=== PATIENT | male | born 1955 | race Caucasian/White ===

== ENCOUNTER 2023-10-22 10:33 | Inpatient (IN) | payer OTHER ==
[~2023-10-22] VITALS: Ht 182.9 cm; Wt 102.6 kg
[2023-10-22] VITALS (9 sets, daily range): BP systolic 87–95; BP diastolic 53–58; PULSE 79–90; RESP 14–18; TEMP 97.8–98.7; O2SAT 97–100
[2023-10-22 11:57] LABS: Basophils # (auto) 0 10 ^3/uL (0-0.2); Basophils % (auto) 0.4 % (0.0-2.0); Eosinophils # (auto) 0 10 ^3/uL (0-0.8); Eosinophils % (auto) 0.2 % (0.0-7.0); Hematocrit 17.1 % (41.0-53.0); Lymphocytes # (auto) 0.7 10 ^3/uL (0.4-5.4); Neutrophils # (auto) 4.5 10 ^3/uL (1.6-8.6)
[2023-10-22 11:58] LABS: Lymphocytes % (auto) 12.2 % (10.0-50.0); Mean Corpuscular Hemoglobin 20.5 pg (28.0-32.0); Mean Corpuscular Volume 73.1 fL (80.0-100.0); Monocytes # (auto) 0.5 10 ^3/uL (0-1.3); Monocytes % (auto) 7.9 % (0.0-12.0); Neutrophils % (auto) 79.3 % (37.0-80.0); Nucleated Red Blood Cells % 1.4 %; Red Blood Cells 2.34 10^6/uL (4.5-5.90); Red Cell Distribution Width 19.4 % (11.8-14.3); White Blood Cell 5.7 10^3/uL (4.4-10.8)
[2023-10-22 12:01] LABS: Hemoglobin 4.8 g/dL (13.5-17.5)
[2023-10-22 12:08] LABS: Alanine Aminotransferase 28 U/L (7-40); Albumin 3.2 g/dL (3.2-4.8); Alkaline Phosphatase 105 U/L (46-116); Anion Gap 13 (5-15); Aspartate Aminotransferase 12 U/L (13-40); BUN/Creatinine Ratio 17.1 (10.0-20.0); Bilirubin, Total 1.4 mg/dL (0.2-1.0); Calcium 8.6 mg/dL (8.5-10.1); Carbon Dioxide 20 mmol/L (20-30); Chloride 99 mmol/L (98-107); Glucose 93 mg/dL (74-106); Sodium 132 mmol/L (136-145)
[2023-10-22 12:09] LABS: Total Protein 5.7 g/dL (5.7-8.2)
[2023-10-22 12:10] LABS: INR 1.36 (0.9-1.15); Prothrombin Time 14.1 sec (9.3-11.8)
[2023-10-22 12:11] LABS: Hypochromia Moderate; Platelet Estimate Adequate
[2023-10-22 12:13] LABS: Blood Urea Nitrogen 84 mg/dL (9-23)
[2023-10-22] MEDS ORDERED: cefTRIAXone 1GM/50ML D5W 50 ML IV ONE (12:45)
[2023-10-22] MEDS ORDERED: MORPHINE SULFATE INJ 2 MG/ml SYRG IV PRN (16:45)
[2023-10-22] MEDS ORDERED: NITROGLYCERIN 0.4 MG SL TAB SL PRN (16:45)
[2023-10-22] MEDS: SODIUM CHLORIDE 0.9% 1,000 ML IV ONE ×2 (16:49→17:23)
[2023-10-22] MEDS: VANCOMYCIN 1GM/200ML 200 ML IV ONE (17:23)
[2023-10-22] MEDS: SODIUM CHLORIDE 0.9% 1,000 ML IV SCH (18:32)
[2023-10-22] MEDS: PIPERACILLIN-TAZOB 3.375GM 100 ML IV SCH (18:44)
[2023-10-23] VITALS (16 sets, daily range): BP systolic 82–109; BP diastolic 55–74; PULSE 72–84; RESP 17–20; TEMP 97.6–98.8; O2SAT 92–94
[2023-10-23] MEDS ORDERED: TAMS0.4C36 PO (01:55)
[2023-10-23] MEDS ORDERED: FER325T PO (01:56)
[2023-10-23 09:08] LABS: Basophils # (auto) 0 10 ^3/uL (0-0.2); Eosinophils # (auto) 0 10 ^3/uL (0-0.8); Eosinophils % (auto) 0.1 % (0.0-7.0); Hemoglobin 7.6 g/dL (13.5-17.5); Lymphocytes # (auto) 0.7 10 ^3/uL (0.4-5.4); Mean Corpuscular Hemoglobin 23.6 pg (28.0-32.0); Mean Corpuscular Hgb Conc. 30.6 g/dL (32.0-36.0); Neutrophils # (auto) 5.2 10 ^3/uL (1.6-8.6); Nucleated Red Blood Cells % 2.7 %
[2023-10-23 09:10] LABS: Basophils % (auto) 0.4 % (0.0-2.0); Hematocrit 24.8 % (41.0-53.0); Lymphocytes % (auto) 11.3 % (10.0-50.0); Mean Corpuscular Volume 77.2 fL (80.0-100.0); Monocytes # (auto) 0.5 10 ^3/uL (0-1.3); Neutrophils % (auto) 80.2 % (37.0-80.0); Red Blood Cells 3.21 10^6/uL (4.5-5.90); Red Cell Distribution Width 19.4 % (11.8-14.3); White Blood Cell 6.4 10^3/uL (4.4-10.8)
[2023-10-23 09:14] LABS: Chloride 102 mmol/L (98-107); Potassium 5.1 mmol/L (3.5-5.1); Sodium 133 mmol/L (136-145)
[2023-10-23 09:15] LABS: Anion Gap 12 (5-15); Calcium 8.6 mg/dL (8.5-10.1); Carbon Dioxide 19 mmol/L (20-30)
[2023-10-23 09:20] LABS: BUN/Creatinine Ratio 16.3 (10.0-20.0); Glucose 108 mg/dL (74-106)
[2023-10-23 09:24] LABS: Blood Urea Nitrogen 82 mg/dL (9-23)
[2023-10-23] MEDS: HYDROcodone-ACET 10/325MG TAB PO PRN (09:42)
[2023-10-23] MEDS: LIDOCAINE 2% JELLY 11ml (GLYDO) UR ONE (12:15)
[2023-10-23] MEDS: LIDOCAINE 2% TOPICAL JELLY 5 ML URJT TOP ONE (13:24)
[2023-10-23 21:00] LABS: Hemoglobin 8.8 g/dL (13.5-17.5)
[2023-10-24] VITALS (8 sets, daily range): BP systolic 95–115; BP diastolic 52–77; PULSE 79–88; RESP 18–20; TEMP 97.5–98; O2SAT 93–99
[2023-10-24 06:20] LABS: Basophils # (auto) 0.1 10 ^3/uL (0-0.2); Lymphocytes # (auto) 0.8 10 ^3/uL (0.4-5.4); Mean Corpuscular Volume 78.8 fL (80.0-100.0); Neutrophils # (auto) 7.3 10 ^3/uL (1.6-8.6); White Blood Cell 9.1 10^3/uL (4.4-10.8)
[2023-10-24 06:23] LABS: Basophils % (auto) 0.8 % (0.0-2.0); Chloride 102 mmol/L (98-107); Eosinophils # (auto) 0 10 ^3/uL (0-0.8); Eosinophils % (auto) 0.3 % (0.0-7.0); Mean Corpuscular Hemoglobin 24.5 pg (28.0-32.0); Mean Corpuscular Hgb Conc. 31.1 g/dL (32.0-36.0); Monocytes # (auto) 0.9 10 ^3/uL (0-1.3); Monocytes % (auto) 9.8 % (0.0-12.0); Neutrophils % (auto) 80.1 % (37.0-80.0); Nucleated Red Blood Cells % 1.6 %; Potassium 5.2 mmol/L (3.5-5.1); Red Blood Cells 3.68 10^6/uL (4.5-5.90); Red Cell Distribution Width 20.9 % (11.8-14.3); Sodium 133 mmol/L (136-145)
[2023-10-24 06:24] LABS: Anion Gap 11 (5-15); Calcium 8.7 mg/dL (8.5-10.1); Carbon Dioxide 20 mmol/L (20-30)
[2023-10-24 06:29] LABS: BUN/Creatinine Ratio 15.5 (10.0-20.0); Blood Urea Nitrogen 79 mg/dL (9-23); Glucose 126 mg/dL (74-106)
[2023-10-24] MEDS: FUROSEMIDE INJECTION 100 MG in SODIUM CHL 0.9% 100 ML IV SCH (10:43)
[2023-10-25] VITALS (8 sets, daily range): BP systolic 84–97; BP diastolic 55–63; PULSE 56–94; RESP 16–19; TEMP 97.6–98.4; O2SAT 91–98
[2023-10-25 06:21] LABS: Anion Gap 11 (5-15); Basophils # (auto) 0.1 10 ^3/uL (0-0.2); Carbon Dioxide 22 mmol/L (20-30); Chloride 100 mmol/L (98-107); Hemoglobin 8.6 g/dL (13.5-17.5); Lymphocytes # (auto) 0.8 10 ^3/uL (0.4-5.4); Mean Corpuscular Hemoglobin 24.2 pg (28.0-32.0); Potassium 4.9 mmol/L (3.5-5.1); Red Blood Cells 3.54 10^6/uL (4.5-5.90); Sodium 133 mmol/L (136-145)
[2023-10-25 06:22] LABS: Calcium 8.1 mg/dL (8.7-10.4)
[2023-10-25 06:23] LABS: Basophils % (auto) 0.7 % (0.0-2.0); Eosinophils # (auto) 0.1 10 ^3/uL (0-0.8); Eosinophils % (auto) 1.7 % (0.0-7.0); Hematocrit 28.1 % (41.0-53.0); Lymphocytes % (auto) 10.1 % (10.0-50.0); Mean Corpuscular Hgb Conc. 30.4 g/dL (32.0-36.0); Mean Corpuscular Volume 79.4 fL (80.0-100.0); Monocytes # (auto) 0.6 10 ^3/uL (0-1.3); Monocytes % (auto) 7.2 % (0.0-12.0); Neutrophils # (auto) 6.6 10 ^3/uL (1.6-8.6); Neutrophils % (auto) 80.3 % (37.0-80.0); Nucleated Red Blood Cells % 0.9 %; White Blood Cell 8.2 10^3/uL (4.4-10.8)
[2023-10-25 06:24] LABS: Red Cell Distribution Width 20.8 % (11.8-14.3)
[2023-10-25 06:27] LABS: BUN/Creatinine Ratio 17.4 (10.0-20.0); Glucose 98 mg/dL (74-106)
[2023-10-25 06:46] LABS: Blood Urea Nitrogen 82 mg/dL (9-23)
[2023-10-25] MEDS: SODIUM CHLORIDE 0.9% 1,000 ML IV SCH (11:45)
[2023-10-25] MEDS: SODIUM CHLORIDE 0.9% 2,000 ML IV ONE (12:00)
[2023-10-25] MEDS ORDERED: ALBU108A5 INH (16:27)
[2023-10-25] MEDS ORDERED: FINA5TAB4 PO (16:27)
[2023-10-26] VITALS (13 sets, daily range): BP systolic 89–140; BP diastolic 54–80; PULSE 74–94; RESP 12–20; TEMP 97.8–98.6; O2SAT 90–100
[2023-10-26 06:30] LABS: Basophils # (auto) 0.1 10 ^3/uL (0-0.2); Lymphocytes # (auto) 0.6 10 ^3/uL (0.4-5.4); Monocytes # (auto) 0.6 10 ^3/uL (0-1.3); Monocytes % (auto) 8.9 % (0.0-12.0)
[2023-10-26 06:34] LABS: Basophils % (auto) 0.8 % (0.0-2.0); Eosinophils # (auto) 0.1 10 ^3/uL (0-0.8); Eosinophils % (auto) 1.3 % (0.0-7.0); Hematocrit 25.3 % (41.0-53.0); Hemoglobin 7.9 g/dL (13.5-17.5); Lymphocytes % (auto) 9.2 % (10.0-50.0); Mean Corpuscular Hemoglobin 24.4 pg (28.0-32.0); Mean Corpuscular Volume 78.8 fL (80.0-100.0); Neutrophils # (auto) 5.2 10 ^3/uL (1.6-8.6); Neutrophils % (auto) 79.8 % (37.0-80.0); Nucleated Red Blood Cells % 0.5 %; Red Blood Cells 3.21 10^6/uL (4.5-5.90); Red Cell Distribution Width 21.2 % (11.8-14.3); White Blood Cell 6.5 10^3/uL (4.4-10.8)
[2023-10-26 06:41] LABS: Chloride 101 mmol/L (98-107); Potassium 3.2 mmol/L (3.5-5.1); Sodium 135 mmol/L (136-145)
[2023-10-26 06:42] LABS: Anion Gap 12 (5-15); Carbon Dioxide 22 mmol/L (20-30)
[2023-10-26 06:43] LABS: Calcium 7.6 mg/dL (8.7-10.4)
[2023-10-26 06:47] LABS: BUN/Creatinine Ratio 20.7 (10.0-20.0); Glucose 97 mg/dL (74-106)
[2023-10-26 07:28] LABS: Blood Urea Nitrogen 83 mg/dL (9-23)
[2023-10-26] MEDS: fentaNYL CITRATE 100 MCG/2 ML VL ONE (08:34)
[2023-10-26] MEDS: MIDAZOLAM HCL 2MG/2ML 2ml VIAL (1mg/ml) ONE (08:35)
[2023-10-26] MEDS: IODIXANOL 320MG/ML 100ML BTL IV ONE (08:35)
[2023-10-26] MEDS: LIDOCAINE 2%HCL (LOCAL ANESTH.) INJ 20ML MDV ONE (08:35)
[2023-10-26] MEDS: FUROSEMIDE 100 MG/10ML VIAL IV SCH (10:00)
[2023-10-26 19:41] LABS: Hematocrit 26.5 % (41.0-53.0); Hemoglobin 8.2 g/dL (13.5-17.5)
[2023-10-27] VITALS (8 sets, daily range): BP systolic 91–113; BP diastolic 61–66; PULSE 64–114; RESP 16–18; TEMP 98–98.6; O2SAT 95–99
[2023-10-27 06:59] LABS: Basophils # (auto) 0.1 10 ^3/uL (0-0.2); Eosinophils # (auto) 0.1 10 ^3/uL (0-0.8); Lymphocytes # (auto) 0.7 10 ^3/uL (0.4-5.4); Monocytes # (auto) 0.5 10 ^3/uL (0-1.3); Neutrophils % (auto) 76.4 % (37.0-80.0)
[2023-10-27 07:01] LABS: Basophils % (auto) 0.9 % (0.0-2.0); Chloride 104 mmol/L (98-107); Eosinophils % (auto) 1.3 % (0.0-7.0); Hematocrit 25.8 % (41.0-53.0); Hemoglobin 7.9 g/dL (13.5-17.5); Mean Corpuscular Hemoglobin 23.9 pg (28.0-32.0); Mean Corpuscular Hgb Conc. 30.7 g/dL (32.0-36.0); Mean Corpuscular Volume 78.1 fL (80.0-100.0); Monocytes % (auto) 9.4 % (0.0-12.0); Neutrophils # (auto) 4.4 10 ^3/uL (1.6-8.6); Nucleated Red Blood Cells % 0.3 %; Potassium 2.9 mmol/L (3.5-5.1); Red Blood Cells 3.31 10^6/uL (4.5-5.90); Sodium 139 mmol/L (136-145); White Blood Cell 5.8 10^3/uL (4.4-10.8)
[2023-10-27 07:02] LABS: Carbon Dioxide 25 mmol/L (20-30)
[2023-10-27 07:03] LABS: Calcium 7.9 mg/dL (8.5-10.1)
[2023-10-27 07:06] LABS: Red Cell Distribution Width 22.2 % (11.8-14.3)
[2023-10-27 07:07] LABS: Glucose 138 mg/dL (74-106)
[2023-10-27 07:08] LABS: BUN/Creatinine Ratio 23.2 (10.0-20.0); Blood Urea Nitrogen 76 mg/dL (9-23)
[2023-10-27 07:09] LABS: Anion Gap 10 (5-15)
[2023-10-27] MEDS: DAKINS QUARTER STR 0.125% (NaHypochlorite) 473 ML TOPICAL SOL TOP SCH (15:12)
[2023-10-27] MEDS: POTASSIUM CHL 20 Meq TABLET PO ONE (15:12)
[2023-10-27] MEDS ORDERED: MORPHINE SULFATE 4 MG/ML SYR/VIAL IV PRN (21:45)
[2023-10-27] MEDS: LACTULOSE 20Gm/30ML SOLN PO ONE (23:31)
[2023-10-28] VITALS (9 sets, daily range): BP systolic 97–104; BP diastolic 59–72; PULSE 85–100; RESP 14–20; TEMP 97.4–99; O2SAT 95–98
[2023-10-28 05:58] LABS: Basophils # (auto) 0.1 10 ^3/uL (0-0.2); Hemoglobin 7.7 g/dL (13.5-17.5); Lymphocytes # (auto) 0.7 10 ^3/uL (0.4-5.4); Monocytes # (auto) 0.6 10 ^3/uL (0-1.3)
[2023-10-28 06:02] LABS: Basophils % (auto) 1.5 % (0.0-2.0); Eosinophils # (auto) 0 10 ^3/uL (0-0.8); Eosinophils % (auto) 0.8 % (0.0-7.0); Hematocrit 24.8 % (41.0-53.0); Lymphocytes % (auto) 13.7 % (10.0-50.0); Mean Corpuscular Hemoglobin 24.4 pg (28.0-32.0); Mean Corpuscular Volume 78.5 fL (80.0-100.0); Monocytes % (auto) 10.4 % (0.0-12.0); Neutrophils # (auto) 3.9 10 ^3/uL (1.6-8.6); Neutrophils % (auto) 73.6 % (37.0-80.0); Nucleated Red Blood Cells % 0.5 %; Red Blood Cells 3.16 10^6/uL (4.5-5.90); White Blood Cell 5.3 10^3/uL (4.4-10.8)
[2023-10-28 06:08] LABS: Anion Gap 7 (5-15); Carbon Dioxide 25 mmol/L (20-30); Chloride 106 mmol/L (98-107); Potassium 3.3 mmol/L (3.5-5.1); Sodium 138 mmol/L (136-145)
[2023-10-28 06:09] LABS: Calcium 7.6 mg/dL (8.5-10.1)
[2023-10-28 06:13] LABS: Glucose 130 mg/dL (74-106)
[2023-10-28 06:16] LABS: Red Cell Distribution Width 22.4 % (11.8-14.3)
[2023-10-28 06:18] LABS: Blood Urea Nitrogen 60 mg/dL (9-23)
[2023-10-28] MEDS: POLYETHYLENE GLYCOL 17 GM PWDR PO PRN (08:39)
[2023-10-28] MEDS: POTASSIUM CHL 10 Meq TABLET PO ONE (08:39)
[2023-10-28] MEDS: FLEET ENEMA(ADULT) 135 ML PR ONE (13:56)
[2023-10-29] VITALS (12 sets, daily range): BP systolic 90–117; BP diastolic 46–71; PULSE 86–99; RESP 18–21; TEMP 97.4–98.8; O2SAT 91–99
[2023-10-29 06:05] LABS: Basophils # (auto) 0.1 10 ^3/uL (0-0.2); Eosinophils # (auto) 0 10 ^3/uL (0-0.8); Eosinophils % (auto) 0.5 % (0.0-7.0); Hemoglobin 7.3 g/dL (13.5-17.5); Lymphocytes # (auto) 0.7 10 ^3/uL (0.4-5.4); Lymphocytes % (auto) 14.7 % (10.0-50.0); Monocytes # (auto) 0.5 10 ^3/uL (0-1.3); Neutrophils # (auto) 3.6 10 ^3/uL (1.6-8.6); Nucleated Red Blood Cells % 0.3 %
[2023-10-29 06:11] LABS: Basophils % (auto) 1.2 % (0.0-2.0); Hematocrit 23.7 % (41.0-53.0); Mean Corpuscular Hemoglobin 24.1 pg (28.0-32.0); Mean Corpuscular Hgb Conc. 30.7 g/dL (32.0-36.0); Mean Corpuscular Volume 78.3 fL (80.0-100.0); Monocytes % (auto) 10.1 % (0.0-12.0); Neutrophils % (auto) 73.5 % (37.0-80.0); Red Blood Cells 3.03 10^6/uL (4.5-5.90); White Blood Cell 4.9 10^3/uL (4.4-10.8)
[2023-10-29 06:16] LABS: Chloride 107 mmol/L (98-107); Potassium 3.2 mmol/L (3.5-5.1); Red Cell Distribution Width 22.4 % (11.8-14.3); Sodium 140 mmol/L (136-145)
[2023-10-29 06:17] LABS: Anion Gap 8 (5-15); Calcium 7.7 mg/dL (8.7-10.4); Carbon Dioxide 25 mmol/L (20-30)
[2023-10-29 06:20] LABS: INR 1.13 (0.9-1.15); Partial Thromboplastin Time 30.2 SEC (24.5-34.5); Prothrombin Time 11.9 sec (9.3-11.8)
[2023-10-29 06:22] LABS: BUN/Creatinine Ratio 24.7 (10.0-20.0); Glucose 92 mg/dL (74-106)
[2023-10-29 06:24] LABS: Phosphorus 3.8 mg/dL (2.4-5.1)
[2023-10-29 06:28] LABS: Blood Urea Nitrogen 44 mg/dL (9-23)
[2023-10-29] MEDS: TAMSULOSIN HYDROCHLORIDE 0.4 MG CAP PO SCH (14:41)
[2023-10-29] MEDS: POTASSIUM CHL 20MEQ/100ML 100 ML IV SCH ×2 (15:06→19:45)
[2023-10-29] MEDS: PIPERACILLIN-TAZOB 3.375GM 100 ML IV SCH (21:30)
[2023-10-30] VITALS (8 sets, daily range): BP systolic 99–108; BP diastolic 57–73; PULSE 86–105; RESP 18–20; TEMP 97.4–98; O2SAT 95–100
[2023-10-30 06:30] LABS: Basophils # (auto) 0.1 10 ^3/uL (0-0.2); Hematocrit 26.8 % (41.0-53.0); Monocytes # (auto) 0.6 10 ^3/uL (0-1.3); Nucleated Red Blood Cells % 0.6 %
[2023-10-30 06:33] LABS: Basophils % (auto) 1.3 % (0.0-2.0); Eosinophils # (auto) 0 10 ^3/uL (0-0.8); Eosinophils % (auto) 0.8 % (0.0-7.0); Hemoglobin 8.2 g/dL (13.5-17.5); Lymphocytes # (auto) 0.8 10 ^3/uL (0.4-5.4); Lymphocytes % (auto) 13.6 % (10.0-50.0); Mean Corpuscular Hemoglobin 24.5 pg (28.0-32.0); Mean Corpuscular Hgb Conc. 30.6 g/dL (32.0-36.0); Mean Corpuscular Volume 80.1 fL (80.0-100.0); Monocytes % (auto) 10.8 % (0.0-12.0); Neutrophils # (auto) 4.4 10 ^3/uL (1.6-8.6); Neutrophils % (auto) 73.5 % (37.0-80.0); Red Blood Cells 3.35 10^6/uL (4.5-5.90); Red Cell Distribution Width 21.8 % (11.8-14.3)
[2023-10-30 06:39] LABS: Chloride 106 mmol/L (98-107); Potassium 3.7 mmol/L (3.5-5.1); Sodium 139 mmol/L (136-145)
[2023-10-30 06:40] LABS: Anion Gap 7 (5-15); Calcium 8.3 mg/dL (8.7-10.4); Carbon Dioxide 26 mmol/L (20-30)
[2023-10-30 06:45] LABS: BUN/Creatinine Ratio 22.6 (10.0-20.0); Blood Urea Nitrogen 35 mg/dL (9-23); Glucose 95 mg/dL (74-106)
[2023-10-31] VITALS (7 sets, daily range): BP systolic 94–122; BP diastolic 63–75; PULSE 71–99; RESP 17–20; TEMP 96.9–98.5; O2SAT 97–98
[2023-10-31 06:15] LABS: Basophils # (auto) 0.1 10 ^3/uL (0-0.2); Eosinophils # (auto) 0.1 10 ^3/uL (0-0.8); Hemoglobin 8.2 g/dL (13.5-17.5); Lymphocytes # (auto) 0.9 10 ^3/uL (0.4-5.4); Monocytes # (auto) 0.4 10 ^3/uL (0-1.3); Neutrophils # (auto) 4.4 10 ^3/uL (1.6-8.6); Nucleated Red Blood Cells % 0.5 %
[2023-10-31 06:18] LABS: Basophils % (auto) 1.6 % (0.0-2.0); Hematocrit 26.5 % (41.0-53.0); Lymphocytes % (auto) 15.3 % (10.0-50.0); Mean Corpuscular Hemoglobin 24.6 pg (28.0-32.0); Mean Corpuscular Volume 79.4 fL (80.0-100.0); Monocytes % (auto) 6.7 % (0.0-12.0); Neutrophils % (auto) 75.4 % (37.0-80.0); Red Blood Cells 3.34 10^6/uL (4.5-5.90); Red Cell Distribution Width 21.9 % (11.8-14.3); White Blood Cell 5.8 10^3/uL (4.4-10.8)
[2023-10-31 06:26] LABS: Chloride 106 mmol/L (98-107); Potassium 3.5 mmol/L (3.5-5.1); Sodium 138 mmol/L (136-145)
[2023-10-31 06:27] LABS: Anion Gap 6 (5-15); Calcium 8.3 mg/dL (8.7-10.4); Carbon Dioxide 26 mmol/L (20-30)
[2023-10-31 06:32] LABS: BUN/Creatinine Ratio 24.1 (10.0-20.0); Blood Urea Nitrogen 35 mg/dL (9-23); Glucose 108 mg/dL (74-106)
[2023-10-31] MEDS: FUROSEMIDE 40 MG/4 ML VIAL IV SCH (17:34)
[2023-10-31] MEDS ORDERED: TAMS-35 PO (21:46)
[2023-10-31] MEDS ORDERED: FER325T PO ×2 (21:49→21:50)
[2023-10-31] MEDS ORDERED: POLY335015 PO (21:52)
[2023-11-01] VITALS (10 sets, daily range): BP systolic 94–118; BP diastolic 59–78; PULSE 72–99; RESP 17–20; TEMP 97.5–98.5; O2SAT 94–100
[2023-11-01 06:06] LABS: Basophils # (auto) 0.1 10 ^3/uL (0-0.2); Basophils % (auto) 2.2 % (0.0-2.0); Eosinophils # (auto) 0.1 10 ^3/uL (0-0.8); Eosinophils % (auto) 0.9 % (0.0-7.0); Hematocrit 26.4 % (41.0-53.0); Hemoglobin 8.1 g/dL (13.5-17.5); Lymphocytes # (auto) 0.9 10 ^3/uL (0.4-5.4); Lymphocytes % (auto) 15.4 % (10.0-50.0); Mean Corpuscular Hgb Conc. 30.8 g/dL (32.0-36.0); Mean Corpuscular Volume 81.3 fL (80.0-100.0); Monocytes # (auto) 0.4 10 ^3/uL (0-1.3); Monocytes % (auto) 6.5 % (0.0-12.0); Neutrophils # (auto) 4.3 10 ^3/uL (1.6-8.6); Nucleated Red Blood Cells % 0.4 %; Red Blood Cells 3.24 10^6/uL (4.5-5.90); White Blood Cell 5.8 10^3/uL (4.4-10.8)
[2023-11-01 06:08] LABS: Red Cell Distribution Width 22.5 % (11.8-14.3)
[2023-11-01 06:12] LABS: Chloride 108 mmol/L (98-107); Potassium 3.5 mmol/L (3.5-5.1); Sodium 137 mmol/L (136-145)
[2023-11-01 06:13] LABS: Anion Gap 5 (5-15); Calcium 8.3 mg/dL (8.7-10.4); Carbon Dioxide 24 mmol/L (20-30)
[2023-11-01 06:18] LABS: BUN/Creatinine Ratio 17.2 (10.0-20.0); Blood Urea Nitrogen 26 mg/dL (9-23); Glucose 109 mg/dL (74-106)
[2023-11-01] MEDS ORDERED: FURO40TA4 PO (12:02)
[2023-11-01] MEDS ORDERED: POTA-36 PO (12:03)
[2023-11-01] MEDS ORDERED: DOCU-111 PO (12:05)
[2023-11-02 01:00] VITALS: BP 100/74; PULSE 92; RESP 17; TEMP 98; O2SAT 97
[2023-11-02 05:00] VITALS: BP 108/75; PULSE 87; RESP 17; TEMP 96.9; O2SAT 99
[2023-11-02 06:19] LABS: Basophils # (auto) 0.1 10 ^3/uL (0-0.2); Eosinophils # (auto) 0 10 ^3/uL (0-0.8); Eosinophils % (auto) 0.6 % (0.0-7.0); Hematocrit 28.1 % (41.0-53.0); Hemoglobin 8.2 g/dL (13.5-17.5); Lymphocytes # (auto) 0.8 10 ^3/uL (0.4-5.4); Lymphocytes % (auto) 14.9 % (10.0-50.0); Mean Corpuscular Hemoglobin 24.5 pg (28.0-32.0); Mean Corpuscular Hgb Conc. 29.3 g/dL (32.0-36.0); Mean Corpuscular Volume 83.6 fL (80.0-100.0); Monocytes # (auto) 0.5 10 ^3/uL (0-1.3); Monocytes % (auto) 8.3 % (0.0-12.0); Neutrophils # (auto) 4.1 10 ^3/uL (1.6-8.6); Neutrophils % (auto) 74.2 % (37.0-80.0); Nucleated Red Blood Cells % 0.4 %; Red Blood Cells 3.36 10^6/uL (4.5-5.90); White Blood Cell 5.5 10^3/uL (4.4-10.8)
[2023-11-02 06:20] LABS: Red Cell Distribution Width 22.7 % (11.8-14.3)
[2023-11-02 06:25] LABS: Chloride 108 mmol/L (98-107); Potassium 3.5 mmol/L (3.5-5.1); Sodium 139 mmol/L (136-145)
[2023-11-02 06:26] LABS: Anion Gap 7 (5-15); Carbon Dioxide 24 mmol/L (20-30)
[2023-11-02 06:27] LABS: Calcium 8.1 mg/dL (8.5-10.1)
[2023-11-02 06:32] LABS: BUN/Creatinine Ratio 17.4 (10.0-20.0); Blood Urea Nitrogen 23 mg/dL (9-23); Glucose 91 mg/dL (74-106)
[2023-11-02 07:52] VITALS: PULSE 83
[2023-11-02 09:00] VITALS: BP 115/71; PULSE 90; RESP 17; TEMP 98.1; O2SAT 99
[2023-11-02 13:00] VITALS: BP 113/82; PULSE 89; RESP 16; TEMP 97.9; O2SAT 98
[2023-11-02] MEDS ORDERED: ATOR40TA52 PO (16:51)
[2023-11-02 17:00] VITALS: BP 115/74; PULSE 77; RESP 17; TEMP 98.2; O2SAT 98
== END 2023-11-02 20:00 | DRG 686 ==
LOC: EDSEX 10:33 → ER 10:33 → EDBD 10:33 → TELE 16:42 → TELE-EAST 23:00
PROVIDERS: ADMIT Internal Medicine; ATTEND Internal Medicine
PROC: 30233N1 Transfusion of Nonautologous Red Blood Cells into Peripheral Vein, Percutaneous Approach (ICD-10-PCS; 2023-10-22)
PROC: 0T9430Z Drainage of Left Kidney Pelvis with Drainage Device, Percutaneous Approach (ICD-10-PCS; 2023-10-26)
PROC: 0T9330Z Drainage of Right Kidney Pelvis with Drainage Device, Percutaneous Approach (ICD-10-PCS; 2023-10-26)
PROC: BT131ZZ Fluoroscopy of Bilateral Kidneys using Low Osmolar Contrast (ICD-10-PCS; 2023-10-26)
PROC: 0HDRXZZ Extraction of Toe Nail, External Approach (ICD-10-PCS; principal; 2023-10-29)
DX: C67.9 Malignant neoplasm of bladder, unspecified (principal); J96.00 Acute respiratory failure, unspecified whether with hypoxia or hypercapnia; D62 Acute posthemorrhagic anemia; N18.5 Chronic kidney disease, stage 5; N17.9 Acute kidney failure, unspecified; J98.11 Atelectasis; N13.1 Hydronephrosis with ureteral stricture, not elsewhere classified; J90 Pleural effusion, not elsewhere classified; I50.20 Unspecified systolic (congestive) heart failure; R31.0 Gross hematuria; E11.22 Type 2 diabetes mellitus with diabetic chronic kidney disease; E87.5 Hyperkalemia; K57.30 Diverticulosis of large intestine without perforation or abscess without bleeding; K59.00 Constipation, unspecified; L03.032 Cellulitis of left toe; L60.3 Nail dystrophy; E87.6 Hypokalemia; I35.0 Nonrheumatic aortic (valve) stenosis; Z85.51 Personal history of malignant neoplasm of bladder; Z93.6 Other artificial openings of urinary tract status; Z80.0 Family history of malignant neoplasm of digestive organs; Z83.3 Family history of diabetes mellitus; Z90.79 Acquired absence of other genital organ(s)
CPT/HCPCS: 36415; 36430; 50432; 71045; 73590; 73620; 74176; 74425; 76604; 76942; 80048; 80053; 83540; 83550; 84100; 85014; 85018; 85025; 85610; 85730; 86850; 86900; 86901; 86920; 87040; 93005; 93306; 97110; 97116; 97163; 97530; 99152; 99291; G0378; J2250; J2543; J3480; Q9967

== ENCOUNTER 2023-11-02 21:07 | Inpatient (IN) | payer OTHER ==
[~2023-11-02] VITALS: Ht 182.9 cm; Wt 102.0 kg
[~2023-11-02 21:07] MED LIST: ALBU108A5 INH; ATOR40TA52 PO; DOCU-111 PO; FER325T PO; FINA5TAB4 PO; FURO40TA4 PO; POLY335015 PO; POTA-36 PO; TAMS-35 PO
[2023-11-03 09:50] VITALS: PULSE 105; RESP 20; O2SAT 94
[2023-11-03 11:36] LABS: Basophils # (auto) 0.1 10 ^3/uL (0-0.2); Eosinophils # (auto) 0 10 ^3/uL (0-0.8); Lymphocytes # (auto) 0.8 10 ^3/uL (0.4-5.4); Monocytes # (auto) 0.4 10 ^3/uL (0-1.3)
[2023-11-03 11:42] LABS: Basophils % (auto) 1.9 % (0.0-2.0); Eosinophils % (auto) 0.5 % (0.0-7.0); Hematocrit 24.7 % (41.0-53.0); Lymphocytes % (auto) 15.6 % (10.0-50.0); Mean Corpuscular Hgb Conc. 31.2 g/dL (32.0-36.0); Mean Corpuscular Volume 80.1 fL (80.0-100.0); Monocytes % (auto) 7.9 % (0.0-12.0); Neutrophils % (auto) 74.1 % (37.0-80.0); Nucleated Red Blood Cells % 0.3 %; Red Blood Cells 3.08 10^6/uL (4.5-5.90); White Blood Cell 5.4 10^3/uL (4.4-10.8)
[2023-11-03 11:51] LABS: Alanine Aminotransferase 28 U/L (7-40); Alkaline Phosphatase 109 U/L (46-116); Anion Gap 7 (5-15); Aspartate Aminotransferase 27 U/L (13-40); BUN/Creatinine Ratio 20.8 (10.0-20.0); Bilirubin, Total 1.4 mg/dL (0.2-1.0); Blood Urea Nitrogen 26 mg/dL (9-23); Carbon Dioxide 25 mmol/L (20-30); Chloride 108 mmol/L (98-107); Glucose 103 mg/dL (74-106); Potassium 3.7 mmol/L (3.5-5.1); Sodium 140 mmol/L (136-145); Total Protein 5.4 g/dL (5.7-8.2)
[2023-11-03 12:00] LABS: Hemoglobin 7.7 g/dL (13.5-17.5); Red Cell Distribution Width 22.7 % (11.8-14.3)
[2023-11-03] MEDS ORDERED: FUROSEMIDE 20 MG/2 ML VIAL IV ONE (13:15)
[2023-11-03 15:12] VITALS: BP 101/74; PULSE 96; RESP 24; TEMP 98.3
[2023-11-03 15:30] VITALS: BP 101/76; PULSE 102; RESP 26; TEMP 98.3
[2023-11-03 17:19] VITALS: BP 110/78; PULSE 104; RESP 21; TEMP 98.2
[2023-11-03] MEDS ORDERED: MORPHINE SULFATE INJ 2 MG/ml SYRG IV PRN (18:15)
[2023-11-03] MEDS ORDERED: NITROGLYCERIN 0.4 MG SL TAB SL PRN (18:15)
[2023-11-03] MEDS ORDERED: ACETAMINOPHEN 325 MG TAB PO PRN (18:15)
[2023-11-03 20:20] VITALS: RESP 20
[2023-11-04 05:05] LABS: Basophils # (auto) 0.1 10 ^3/uL (0-0.2); Eosinophils # (auto) 0 10 ^3/uL (0-0.8); Hemoglobin 8.9 g/dL (13.5-17.5); Monocytes # (auto) 0.7 10 ^3/uL (0-1.3)
[2023-11-04 05:07] LABS: Basophils % (auto) 1.9 % (0.0-2.0); Eosinophils % (auto) 0.3 % (0.0-7.0); Hematocrit 28.6 % (41.0-53.0); Lymphocytes % (auto) 15.4 % (10.0-50.0); Mean Corpuscular Hemoglobin 24.2 pg (28.0-32.0); Mean Corpuscular Hgb Conc. 31.2 g/dL (32.0-36.0); Mean Corpuscular Volume 77.6 fL (80.0-100.0); Neutrophils # (auto) 4.8 10 ^3/uL (1.6-8.6); Neutrophils % (auto) 71.4 % (37.0-80.0); Nucleated Red Blood Cells % 0.5 %; Red Blood Cells 3.68 10^6/uL (4.5-5.90); White Blood Cell 6.7 10^3/uL (4.4-10.8)
[2023-11-04 05:21] LABS: Red Cell Distribution Width 22.4 % (11.8-14.3)
[2023-11-04 05:27] LABS: Alanine Aminotransferase 30 U/L (7-40); Albumin 3.2 g/dL (3.2-4.8); Alkaline Phosphatase 116 U/L (46-116); Anion Gap 7 (5-15); Aspartate Aminotransferase 26 U/L (13-40); BUN/Creatinine Ratio 23.9 (10.0-20.0); Bilirubin, Total 1.4 mg/dL (0.2-1.0); Blood Urea Nitrogen 33 mg/dL (9-23); Calcium 8.4 mg/dL (8.7-10.4); Carbon Dioxide 25 mmol/L (20-30); Chloride 106 mmol/L (98-107); Glucose 114 mg/dL (74-106); Potassium 4.3 mmol/L (3.5-5.1); Sodium 138 mmol/L (136-145); Total Protein 5.9 g/dL (5.7-8.2)
[2023-11-04 06:12] LABS: Anisocytosis Slight; Hypochromia Slight; Platelet Estimate Adequate
[2023-11-04 07:50] VITALS: PULSE 91; RESP 19; O2SAT 95
[2023-11-04 19:45] VITALS: PULSE 96; RESP 18; O2SAT 100
[2023-11-04 20:00] VITALS: TEMP 97.8
[2023-11-04 22:00] VITALS: BP 105/82; PULSE 98; RESP 19; O2SAT 96
== END 2023-11-04 22:53 | DRG 686 ==
LOC: ER 21:07 → EDBD 21:07 → OVERFLOW 11-03 18:05
PROVIDERS: ADMIT Student in an Organized Health Care Education/Training Program; ATTEND Student in an Organized Health Care Education/Training Program
PROC: 30233N1 Transfusion of Nonautologous Red Blood Cells into Peripheral Vein, Percutaneous Approach (ICD-10-PCS; principal; 2023-11-03)
DX: C67.9 Malignant neoplasm of bladder, unspecified (principal); I50.43 Acute on chronic combined systolic (congestive) and diastolic (congestive) heart failure; I11.0 Hypertensive heart disease with heart failure; D63.0 Anemia in neoplastic disease; Z85.51 Personal history of malignant neoplasm of bladder; Z91.199 Patient's noncompliance with other medical treatment and regimen due to unspecified reason; Z79.899 Other long term (current) drug therapy
CPT/HCPCS: 36415; 80053; 83880; 85025; 86850; 86900; 86901; 86920; G0378